=== PATIENT | female | born 1980 | race Hispanic/Latino ===

== ENCOUNTER 2018-07-30 10:46 | Outpatient (CLI) | payer BC | END 2018-07-30 10:47 | disposition home or self-care (01) | LOC: BICMAMMO 10:46 | PROVIDERS: ATTEND Physician Assistant | DX: Z12.31 Encounter for screening mammogram for malignant neoplasm of breast (principal) | CPT/HCPCS: 77063; 77067 ==

== ENCOUNTER 2019-08-01 10:45 | Outpatient (CLI) | payer BC ==
--- NOTE | 2019-08-01 12:05 | MMO ---
Bilateral MAMMO Bilat Screen DDI+NANCY. CLINICAL HISTORY: Patient is 39 years old and is seen for screening. The patient has no family history of breast cancer. The patient has no personal history of cancer. VIEWS: The views performed were: bilateral craniocaudal with tomosynthesis; bilateral mediolateral oblique with tomosynthesis; and bilateral exaggerated craniocaudal. FILMS COMPARED: The present examination has been compared to a prior imaging study performed at [facility] on 07/30/2018. This study has been interpreted with the assistance of computer-aided detection. MAMMOGRAM FINDINGS: The breasts are heterogeneously dense, which could obscure a lesion on mammography. There are no suspicious masses, suspicious calcifications, or new areas of architectural distortion. IMPRESSION: THERE IS NO MAMMOGRAPHIC EVIDENCE OF MALIGNANCY. A ROUTINE FOLLOW-UP MAMMOGRAM IN 1 YEAR IS RECOMMENDED. THE RESULTS OF THIS EXAM WERE SENT TO THE PATIENT. ACR BI-RADS Category 1 - Negative MAMMOGRAPHY NOTE: 1. A negative mammogram report should not delay a biopsy if a dominant of clinically suspicious mass is present. 2. Approximately 10% to 15% of breast cancers are not detected by mammography. 3. Adenosis and dense breasts may obscure an underlying neoplasm. Reported by: RENATE FERNANDES MD Electonically Signed: [id number]
== END 2019-08-01 10:46 | disposition home or self-care (01) ==
LOC: BICMAMMO 10:45
PROVIDERS: ATTEND Physician Assistant
DX: Z12.31 Encounter for screening mammogram for malignant neoplasm of breast (principal)
CPT/HCPCS: 77063; 77067

== ENCOUNTER 2020-06-03 08:14 | Inpatient (IN) | payer BC, OTHER ==
[2020-06-03 09:11] LABS: #Lymphocytes 0.8 thou/uL (1.20-3.40); #Monocytes 0.2 thou/uL (0.11-0.59); #Neutrophils 5.8 thou/uL (1.40-6.50); %Basophils 0.3 % (0.0-1.0); %Eosinophils 0.1 % (0.0-10.0); %Neutrophils 84.6 % (42.0-75.0); Hemoglobin 13.8 g/dL (12.0-16.0); Mean Corpuscular HGB CONC 34.1 g/dL (32.0-36.0); Mean Corpuscular Hemoglobin 31.5 pg (27.0-31.0); Mean Corpuscular Volume 92.6 fL (78.0-98.0); Mean Platelet Volume 7.5 fL (7.4-10.4); Platelet Count 276 thou/uL (130-400); RBC Distribution Width 11.3 % (11.5-14.5); Red Blood Cell (RBC) Count 4.37 mill/uL (4.20-5.40); White Blood Cell (WBC) Count 6.8 thou/uL (4.8-10.8)
[2020-06-03 09:31] LABS: ALT (SGPT) 48 U/L (8-55); AST (SGOT) 43 U/L (5-34); Albumin 4.1 g/dL (3.5-5.0); Alkaline Phosphatase 98 U/L (40-110); Anion Gap 16 mmol/L (10-20); BUN (Urea Nitrogen) 10 mg/dL (7.0-18.7); Bilirubin, Total 0.5 mg/dL (0.2-1.2); Calc. Creatinine Clearance 0 mL/min (70-130); Calcium 8.8 mg/dL (7.8-10.44); Carbon Dioxide 24 mmol/L (22-29); Chloride 102 mmol/L (98-107); Estimated GFR-MDRD 71; Glucose 119 mg/dL (70-105); Potassium 3.5 mmol/L (3.5-5.1); Protein, Total 8.1 g/dL (6.0-8.3); Sodium 138 mmol/L (136-145)
--- NOTE | 2020-06-03 09:54 | RAD ---
CHEST 1 VIEW: Date: 06/03/2020 INDICATION: History of cough, hypoxia, and COVID-positive testing. Difficulty breathing. COMPARISON: Prior exam dated 04/26/2011. FINDINGS: There is bilateral air space disease consistent with multifocal pneumonia. Heart size is normal. No p leural effusion or pneumothorax is evident. No acute osseous abnormality is evident. IMPRESSION: Findings of multifocal pneumonia. POS: BH
[2020-06-03] MEDS ORDERED: Albuterol 200 PUFF (6.7GM INHALER) ONE (10:10)
[2020-06-03] MEDS ORDERED: Dexamethasone 10 MG/ML VIAL ONE (10:11)
[2020-06-03] MEDS ORDERED: cefTRIAXone\\ROCEPHIN 2 GM VIAL ONE (10:11)
[2020-06-03] MEDS ORDERED: Azithromycin 500 MG VIAL ONE (10:11)
--- NOTE | 2020-06-03 10:55 | PDOC.HHP ---
Hospitalist HPI - History of Present Illness Shortness of breath History of Present Illness: PCP: Marianna The patient is a 40-year-old female with no significant past medical history that presents the emergency department for evaluation of the above complaint. Patient reports having a positive diagnosis for the coronavirus approximately 1 week ago. She has multiple family members that have also tested positive. She reports this morning, having more difficulty breathing and feeling short of breath. She reports associated nonproductive cough, loss of smell and fever. She has no history of COPD/asthma. Denies any headache or neck stiffness, no focal motor deficits. Denies chest pain or lightheadedness. No history of DVT/PE. She denies any abdominal pain, nausea, vomiting, diarrhea. Denies any dysuria. ED Course: VITAL SIGNS MonJun 03, 2020 08:25 CHINYERE Dick Lacee BP: 111/69, MAP: 81, Resp: 36, Temp: 100.4 (Oral), Pain: 0, O2 sat: 97 on (Room Air), Time: 06/03/2020 08:25. VITAL SIGNS MonJun 03, 2020 08:40 CHINYERE Cueva Taylor BP: 110/66, Pulse: 106, Resp: 36, Pain: 2, O2 sat: 99 on (2L Oxygen), Time: 06/03/2020 08:40. VITAL SIGNS MonJun 03, 2020 09:50 CHINYERE Cueva Taylor BP: 112/64, MAP: 78, Pulse: 82, Resp: 16, Pain: 0, O2 sat: 96 on (2L Oxygen), Time: 06/03/2020 09:50. VITAL SIGNS MonJun 03, 2020 10:35 CHINYERE Cueva Taylor BP: 110/61, MAP: 78, Pulse: 80, Resp: 18, Pain: 0, O2 sat: 95 on (2L Oxygen), Time: 06/03/2020 10:35. Medication administration: azithromycin intravenous 500 mg IV Piggy Back Acknowledged 09:45 06/03/2020 cefTRIAXone injection 2 g IV Piggy Back Given 10:34 06/03/2020 Decadron Phosphate injection 10 mg IV Push Given 10:29 06/03/2020 Proventil HFA 4 inhalation Inhaler-MDI Given 10:24 06/03/2020 sodium chloride 0.9 % intravenous 500 mL IV Fluid Infusion Given 08:55 06/03/2020 Hospitalist ROS - Review of Systems All other systems reviewed; all pertinent +/- noted in HPI/Subj - Medication Medications: NyQuil liquid : Strength - 30 mg-60 mg-1,000 mg-7.5 mg/30 mL : ORAL Patient Dose: UNK. Vicks DayQuil 2 mg-30 mg/5 mL oral liquid liquid : Strength - 2 mg-30 mg/5 mL : ORAL Patient Dose: UNK. Allergies: NKDA Hospitalist History - Past Medical History Source: patient, RN notes reviewed Cardiac: reports: no pertinent history Pulmonary: reports: no pertinent history INCIDENT RESPONSE LEAD: reports: no pertinent history ENT: reports: no pertinent history - Past Surgical History Past Surgical History: reports: Hysterectomy - Family History Other Family History: Noncontributory to this case - Social History Smoking Status: Never smoker Alcohol: reports: None Drugs: reports: none Living Situation: With Family Activity level: independent ambulation - Exam General Appearance: NAD, awake alert. negative: ill appearing General - other findings: Appears uncomfortable Eye: PERRL, anicteric sclera ENT: normocephalic atraumatic Neck: supple, symmetric, no JVD Heart: RRR, no murmur, no gallops, no rubs, normal peripheral pulses Respiratory: normal chest expansion, no tachypnea, rhonchi, wheezes Gastrointestinal: soft, non-tender, normal bowel sounds, no bruit, no guarding, no rigidity Extremities: no cyanosis, no edema Skin: no rashes Neurological: cranial nerve grossly intact, no focal deficits Musculoskeletal: normal tone, normal strength Psychiatric: normal affect, A&O x 3 Hospitalist Results - Labs Result Diagrams: 06/03/20 08:47 06/03/20 08:47 Lab results: WBC 6.8 thou/uL (4.8-10.8) 06/03/20 08:47 Hgb 13.8 g/dL (12.0-16.0) 06/03/20 08:47 Hct 40.5 % (36.0-47.0) 06/03/20 08:47 MCV 92.6 fL (78.0-98.0) 06/03/20 08:47 Plt Count 276 thou/uL (130-400) 06/03/20 08:47 Neutrophils % 84.6 % (42.0-75.0) H 10/07/20 08:47 Sodium 138 mmol/L (136-145) 06/03/20 08:47 Potassium 3.5 mmol/L (3.5-5.1) 06/03/20 08:47 Chloride 102 mmol/L (98-107) 06/03/20 08:47 Carbon Dioxide 24 mmol/L (22-29) 06/03/20 08:47 BUN 10 mg/dL (7.0-18.7) 06/03/20 08:47 Creatinine 0.87 mg/dL (0.6-1.1) 06/03/20 08:47 Glucose 119 mg/dL (70-105) H 06/03/20 08:47 Lactic Acid 1.5 mmol/L (0.5-2.2) 06/03/20 08:56 Calcium 8.8 mg/dL (7.8-10.44) 06/03/20 08:47 Total Bilirubin 0.5 mg/dL (0.2-1.2) 06/03/20 08:47 AST 43 U/L (5-34) H 06/03/20 08:47 ALT 48 U/L (8-55) 06/03/20 08:47 Alkaline Phosphatase 98 U/L (40-110) 06/03/20 08:47 Troponin I 0.010 ng/mL (< 0.028) 06/03/20 08:47 Serum Total Protein 8.1 g/dL (6.0-8.3) 06/03/20 08:47 Albumin 4.1 g/dL (3.5-5.0) 06/03/20 08:47 - EKG Interpretation EK lead EKG interpreted by Emergency Department Physician at time of study, EKG with heart rate 91, normal sinus rhythm, no acute ischemic changes, normal intervals normal axis - Radiology Interpretation Chest x-ray Status: report reviewed by me Additional Comment: Chest x-ray consistent with bilateral severe COVID pneumonia Hospitalist H&P A/P - Problem (1) COVID-19 virus infection Code(s): U07.1 - COVID-19 Status: Acute (2) Hypoxia Code(s): R09.02 - HYPOXEMIA Status: Acute (3) Sepsis Code(s): A41.9 - SEPSIS, UNSPECIFIED ORGANISM Status: Acute - Plan Plan: 40/F recently diagnosed with COVID, presents to emergency department for increasing shortness of breath. Admit medical floor, inpatient status. Expected length of stay greater than 2 midnights. Presented tachypneic, febrile, hypoxic NL BP and HR. CXR multifocal pneumonia, consistent with viral etiology. Troponin negative, DD negative. LA 1.5, WBC 6.8 #COVID-19 virus infection Continue azithromycin and Rocephin IVPB. Continue dexamethasone, albuterol as needed. Continue submental oxygen. Start ascorbic acid and zinc. Consult ID. Isolation precautions. Check acute phase reactants. #Hypoxia Mild. No acute respiratory distress upon examination. Continue submental oxygen. #Sepsis Likely related to problem #1. Blood cultures pending.
[2020-06-03] MEDS ORDERED: Guaifenesin DM 100-10/5 ML UDCUP PO PRN (11:06)
[2020-06-03] MEDS ORDERED: Calcium Carbonate 500 MG ChewTAB PO PRN (11:06)
[2020-06-03] MEDS ORDERED: Ondansetron PF 4 MG/2 ML Vial IVP PRN (11:06)
[2020-06-03] MEDS ORDERED: Ondansetron ODT 4 MG TAB PO PRN (11:06)
[2020-06-03 12:04] LABS: Bilirubin Negative (Negative); Blood, Urine 1+ (Negative); Clarity Clear (Clear); Glucose, Urine (Dipstick) Normal (Negative); Ketone, Urine Trace mg/dL (Negative); Leukocyte Negative Leu/uL (Negative); Nitrite Negative (Negative); Protein, Urine (Dipstick) 50 mg/dL (Neg-Trace); Specific Gravity, Urine 1.028 (1.002-1.036); Urobilinogen Normal mg/dL (Less than 2)
[2020-06-03 12:09] LABS: Pregnancy Test - Urine (BHCG) Negative (Negative); Pregu Control Background? CLEAR/WHITE (CLR/WHITE); Pregu Control Bar Appear? YES (CONTROL BAR); Specific Gravity 1.028 (1.002-1.036)
[2020-06-03 12:12] LABS: Bacteria/HPF 1+ HPF (None Seen); Mucous/LPF 1+ LPF (<2+)
[2020-06-03 15:22] VITALS: BMI 31.9
[2020-06-03] MEDS: Famotidine 20 MG TAB PO SCH (20:10)
[2020-06-03] MEDS ORDERED: Enoxaparin Sodium 40 MG/0.4 ML SYRINGE SC SCH (21:00)
[2020-06-04 06:42] LABS: #Lymphocytes 0.9 thou/uL (1.20-3.40); #Monocytes 0.4 thou/uL (0.11-0.59); #Neutrophils 8.4 thou/uL (1.40-6.50); %Basophils 0.1 % (0.0-1.0); %Lymphocytes 8.8 % (21.0-51.0); %Monocytes 4.5 % (0.0-10.0); %Neutrophils 86.7 % (42.0-75.0); Hemoglobin 12.6 g/dL (12.0-16.0); Mean Corpuscular HGB CONC 32.6 g/dL (32.0-36.0); Mean Corpuscular Hemoglobin 30.5 pg (27.0-31.0); Mean Corpuscular Volume 93.4 fL (78.0-98.0); Mean Platelet Volume 7.6 fL (7.4-10.4); Platelet Count 310 thou/uL (130-400); RBC Distribution Width 11.2 % (11.5-14.5); Red Blood Cell (RBC) Count 4.15 mill/uL (4.20-5.40); White Blood Cell (WBC) Count 9.6 thou/uL (4.8-10.8)
[2020-06-04 06:53] LABS: Anion Gap 13 mmol/L (10-20); BUN (Urea Nitrogen) 12 mg/dL (7.0-18.7); Calc. Creatinine Clearance 131 mL/min (70-130); Calcium 8.6 mg/dL (7.8-10.44); Carbon Dioxide 24 mmol/L (22-29); Chloride 106 mmol/L (98-107); Estimated GFR-MDRD Greater than 90; Glucose 121 mg/dL (70-105); Sodium 139 mmol/L (136-145)
[2020-06-04] MEDS: Dexamethasone 4 mg/ml Vial SLOW IVP SCH (08:39)
[2020-06-04] MEDS: Famotidine 20 MG TAB PO SCH ×2 (08:39→21:18)
[2020-06-04] MEDS: Ascorbic Acid 500 mg Chewable Tablet PO SCH (08:39)
[2020-06-04] MEDS: Zinc Sulfate 220 MG CAP PO SCH (08:39)
[2020-06-04] MEDS: Acetaminophen 325 MG TAB PO PRN (09:08)
[2020-06-04] MEDS ORDERED: cefTRIAXone\\ROCEPHIN 1 GM in Sodium Chloride 0.9% 100 ML IVPB SCH (10:30)
[2020-06-04] MEDS ORDERED: Azithromycin 500 MG in Sodium Chloride 0.9% 250 ML 250 ML IVPB SCH (11:00)
--- NOTE | 2020-06-04 11:04 | PDOC.HOSPP ---
- Subjective Encounter Date: 06/04/20 Encounter Time: 11:03 Subjective: malaise, loss of smell, dyspne - Objective Vital Signs & Weight: Vital Signs (12 hours) Temp Pulse Resp BP BP Pulse Ox 06/04/20 08:45 98.6 F 76 22 H 110/75 97 06/04/20 08:00 97 06/04/20 04:00 98.3 F 81 18 95/61 94 L 06/03/20 23:36 98.7 F 66 20 95/62 95 Weight Admit Weight 174 lb 12.8 oz Weight 174 lb 12.8 oz I&O: 06/03/20 06/04/20 06/05/20 06:59 06:59 06:59 Intake Total 240 Balance 240 Result Diagrams: 06/04/20 05:30 06/04/20 05:45 Hospitalist ROS - Medication Medications: Active Medications Generic Name Dose Route Start Last Admin Trade Name Freq PRN Reason Stop Dose Admin Acetaminophen 650 mg 06/03/20 11:06 06/04/20 09:08 Acetaminophen 325 Mg Tab PO 650 mg Q4H PRN Administration Headache/Fever/Mild Pain (1-3) Ascorbic Acid 1,000 mg 06/04/20 09:00 06/04/20 08:39 Ascorbic Acid 500 Mg Chewable Tablet PO 1,000 mg DAILY MITUL Administration Dexamethasone 6 mg 06/04/20 09:00 06/04/20 08:39 Dexamethasone 4 Mg/Ml Vial SLOW IVP 6 mg DAILY MITUL Administration Enoxaparin Sodium 40 mg 06/03/20 21:00 06/03/20 20:10 Enoxaparin Sodium 40 Mg/0.4 Ml Syringe SC 40 mg 2100 MITUL Administration Famotidine 20 mg 06/03/20 21:00 06/04/20 08:39 Famotidine 20 Mg Tab PO 20 mg BID MITUL Administration Azithromycin 500 mg/ Sodium 250 mls @ 250 mls/hr 06/04/20 11:00 06/04/20 09:59 Chloride IVPB 250 mls 1100 MITUL Administration Ceftriaxone Sodium 1 gm/ 100 mls @ 200 mls/hr 06/04/20 10:30 06/04/20 08:41 Sodium Chloride IVPB 100 mls 1030 MITUL Administration Zinc Sulfate 220 mg 06/04/20 09:00 06/04/20 08:39 Zinc Sulfate 220 Mg Cap PO 220 mg DAILY MITUL Administration - Exam General Appearance: awake alert Neck: no JVD Heart: RRR, no murmur Respiratory - other findings: decreased BS, moderate fine rales Gastrointestinal: soft, non-tender, normal bowel sounds Extremities: no edema Hosp A/P (1) Pneumonia due to COVID-19 virus Code(s): U07.1 - COVID-19; J12.89 - OTHER VIRAL PNEUMONIA Status: Acute (2) Acute respiratory failure with hypoxia Code(s): J96.01 - ACUTE RESPIRATORY FAILURE WITH HYPOXIA Status: Acute - Plan cont iv steroids cont albuterol anticoagulate
[2020-06-04] MEDS: PROVENTIL INHALER 6.7 G (200 INHALATIONS) INH PRN (14:22)
[2020-06-04] MEDS ORDERED: REMDESIVIR (EUA) 200 MG in Sodium Chloride 0.9% 250 ML 210 ML IV SCH (16:00)
--- NOTE | 2020-06-04 19:45 | CON ---
DATE OF CONSULTATION: 06/04/2020 REASON FOR CONSULTATION: COVID pneumonia. HISTORY OF PRESENT ILLNESS: A 40-year-old with no past medical history who has had symptoms of fever and respiratory symptoms since Monday last week, so this is the 8th day of illness. She tested positive and then has gotten progressively worse with dyspnea. She was admitted and has been started on Decadron, azithromycin, and O2 supplementation. She is quite scared right now and has a hard time taking deep breaths, coughing intermittently. She is able to eat. No vomiting, no headaches. Her mental state is stable and no abdominal pain. No genitourinary symptoms. No joint symptoms. PAST MEDICAL HISTORY: Negative. SOCIAL HISTORY: , never a smoker. Works at [employer]. Looks like there is still COVID transmission at [employer]. She states that some of her coworkers do not wear masks in the workplace. ALLERGIES: NONE. MEDICATIONS: She is currently on: 1. Albuterol. 2. Azithromycin. 3. Ceftriaxone. 4. Enoxaparin. 5. Decadron. 6. Zinc sulfate. PHYSICAL EXAMINATION: VITAL SIGNS: Afebrile, breathing at 22 times a minute. She is satting at 100 on 2 L. she looks pretty tight, though, has a hard time taking deep breaths. RESPIRATORY: There are fine inspiratory crackles in bibasilar areas. HEART: S1 and S2, regular rate. ABDOMEN: Soft, not distended. NEUROLOGICAL/EXTREMITIES: Nonfocal. No edema. Pulses are normal in lower extremities. Cognitive function appears to be intact. LABORATORY DATA: White cell count 9.6, hemoglobin 12.6, platelets 310, 86% neutrophils. D-dimer 0.3. Ferritin 853. CRP 11.3. Albumin 4.1. Urinalysis, 4 to 6 wbc's. DIAGNOSTIC STUDIES: Chest x-ray with multifocal pneumonia. ASSESSMENT: Otherwise healthy middle-aged female with coronavirus disease pneumonia, moderate to severe, 8 days of illness. We will go ahead and add remdesivir, convalescent plasma. Continue Decadron and enoxaparin daily. Inflammatory marker monitoring. Job ID: [id number] MTDD
[2020-06-04] MEDS ORDERED: Enoxaparin Sodium 80 MG/0.8 ML SYRINGE SC SCH (21:00)
[2020-06-05 05:56] LABS: Hemoglobin 12.8 g/dL (12.0-16.0); Platelet Count 374 thou/uL (130-400)
[2020-06-05] MEDS: Ascorbic Acid 500 mg Chewable Tablet PO SCH (08:58)
[2020-06-05] MEDS: Famotidine 20 MG TAB PO SCH ×2 (08:58→19:59)
[2020-06-05] MEDS: Dexamethasone 4 mg/ml Vial SLOW IVP SCH (08:58)
[2020-06-05] MEDS: Zinc Sulfate 220 MG CAP PO SCH (09:02)
[2020-06-05] MEDS: Enoxaparin Sodium 40 MG/0.4 ML SYRINGE SC SCH ×2 (09:15→19:58)
[2020-06-05 12:10] LABS: SARS-CoV-2 MS2 Positive; SARS-CoV-2 N Gene Positive; SARS-CoV-2 S Gene Positive; SARS-CoV-2 by NAA DETECTED (NotDetected); SARS-CoV-2 orf1ab Positive
[2020-06-05] MEDS: REMDESIVIR (EUA) 100 MG in Sodium Chloride 0.9% 250 ML 230 ML IV SCH (18:03)
--- NOTE | 2020-06-05 18:50 | PDOC.HOSPP ---
- Subjective Encounter Date: 06/05/20 Encounter Time: 18:30 Subjective: Patient seen and examined for COVID-19 pneumonia with respiratory failure. Feels generally weak and fatigued. Some productive cough. Shortness of breath on [id number] exertion. Denies any chest pain or worsening of redness of breath. - Objective Vital Signs & Weight: Vital Signs (12 hours) Temp Pulse Pulse Resp BP BP Pulse Ox 06/05/20 16:15 98.2 F 67 16 96/60 98 06/05/20 13:46 98.3 F 68 16 98/62 98 06/05/20 13:31 98.3 F 69 16 106/70 97 06/05/20 08:00 98.4 F 68 20 103/67 98 Weight Admit Weight 174 lb 12.8 oz Weight 174 lb 12.8 oz I&O: 06/04/20 06/05/20 06/06/20 06:59 06:59 06:59 Intake Total 240 1600 240 Balance 240 1600 240 Result Diagrams: 06/05/20 05:40 06/05/20 05:40 Additional Labs: 06/04/20 05:30: RBC 4.15 L, RDW 11.2 L, Neutrophils % 86.7 H, Lymphocytes % 8.8 L, Neutrophils # 8.4 H, Lymphocytes # 0.9 L 06/04/20 05:45: Lactate Dehydrogenase 334 H 06/04/20 05:45: C-Reactive Protein 11.30 H 06/04/20 05:45: Ferritin 853.84 H 06/04/20 16:44: SARS-CoV-2 (PCR) DETECTED A* Microbiology - Entire Visit 06/03/20 08:47 Venous blood - Left Arm Blood Culture - Preliminary NO GROWTH AT 48 HOURS 06/03/20 08:47 Venous blood - Right Arm Blood Culture - Preliminary NO GROWTH AT 48 HOURS Radiology Reviewed by me: Yes (Chest x-raymultifocal pneumonia) Hospitalist ROS - Review of Systems Constitutional: reports: weakness, malaise. denies: fever, chills, sweats, other Gastrointestinal: denies: nausea, vomiting, abdominal pain, diarrhea, constipation, melena, hematochezia, other - Medication Medications: Active Medications Generic Name Dose Route Start Last Admin Trade Name Freq PRN Reason Stop Dose Admin Acetaminophen 650 mg 06/03/20 11:06 06/04/20 09:08 Acetaminophen 325 Mg Tab PO 650 mg Q4H PRN Administration Headache/Fever/Mild Pain (1-3) Albuterol Sulfate 2 puff 06/03/20 14:41 06/04/20 14:22 Proventil Inhaler 6.7 G (200 Inhalations) INH 2 puff Q4H PRN Administration bronchospasm Ascorbic Acid 1,000 mg 06/04/20 09:00 06/05/20 08:58 Ascorbic Acid 500 Mg Chewable Tablet PO 1,000 mg DAILY MITUL Administration Dexamethasone 6 mg 06/04/20 09:00 06/05/20 08:58 Dexamethasone 4 Mg/Ml Vial SLOW IVP 6 mg DAILY MITUL Administration Enoxaparin Sodium 40 mg 06/05/20 09:00 06/05/20 09:15 Enoxaparin Sodium 40 Mg/0.4 Ml Syringe SC 40 mg 0900,2100 MITUL Administration Famotidine 20 mg 06/03/20 21:00 06/05/20 08:58 Famotidine 20 Mg Tab PO 20 mg BID MITUL Administration Remdesivir 100 mg/ Sodium 250 mls @ 250 mls/hr 06/05/20 16:00 06/05/20 18:03 Chloride IV 06/08/20 16:59 250 mls 1600 MITUL Administration Zinc Sulfate 220 mg 06/04/20 09:00 06/05/20 09:02 Zinc Sulfate 220 Mg Cap PO 220 mg DAILY MITUL Administration - Exam General Appearance: ill appearing Neck: supple, symmetric, no JVD Heart: RRR, no gallops, no rubs, normal peripheral pulses Respiratory: no wheezes, rales, rhonchi, tachypneic (Mild) Gastrointestinal: soft, non-tender, normal bowel sounds, no guarding, no rigidity Extremities: no cyanosis, no clubbing Neurological: no new deficit Musculoskeletal: generalized weakness Psychiatric: normal affect, A&O x 3 Hosp A/P (1) Acute respiratory failure with hypoxia Code(s): J96.01 - ACUTE RESPIRATORY FAILURE WITH HYPOXIA Status: Acute (2) Pneumonia due to COVID-19 virus Code(s): U07.1 - COVID-19; J12.89 - OTHER VIRAL PNEUMONIA Status: Acute (3) Sepsis Code(s): A41.9 - SEPSIS, UNSPECIFIED ORGANISM Status: Acute (4) Obesity (BMI 30.0-34.9) Code(s): E66.9 - OBESITY, UNSPECIFIED Status: Chronic - Plan DVT proph w/lovenox 06/05 Continue Remdesivir (day 2 of 5). Received convalescent plasma today. Continue dexamethasone 6 mg daily (day 2). Reduce Lovenox to 40 mg twice daily from 80 mg twice daily. Continue vitamin C with zinc. GI prophylaxis. Monitor inflammatory markers. Patient understands above plan of care. Infectious disease input appreciated. Continue albuterol inhaler as needed.
[2020-06-05] MEDS: guaiFENesin ER 600 MG TAB PO SCH (19:59)
[2020-06-05] MEDS: Acetaminophen 325 MG TAB PO PRN (19:59)
[2020-06-05] MEDS: PROVENTIL INHALER 6.7 G (200 INHALATIONS) INH PRN (20:00)
[2020-06-06 06:11] LABS: #Lymphocytes 1.2 thou/uL (1.20-3.40); #Monocytes 0.6 thou/uL (0.11-0.59); #Neutrophils 4.7 thou/uL (1.40-6.50); %Basophils 0.1 % (0.0-1.0); %Eosinophils 0.1 % (0.0-10.0); %Lymphocytes 18.6 % (21.0-51.0); %Monocytes 9.1 % (0.0-10.0); %Neutrophils 72.1 % (42.0-75.0); Hemoglobin 12.6 g/dL (12.0-16.0); Mean Corpuscular HGB CONC 34.2 g/dL (32.0-36.0); Mean Corpuscular Hemoglobin 31.7 pg (27.0-31.0); Mean Corpuscular Volume 92.8 fL (78.0-98.0); Mean Platelet Volume 7.4 fL (7.4-10.4); Platelet Count 413 thou/uL (130-400); RBC Distribution Width 11.5 % (11.5-14.5); Red Blood Cell (RBC) Count 3.96 mill/uL (4.20-5.40); White Blood Cell (WBC) Count 6.5 thou/uL (4.8-10.8)
[2020-06-06 06:38] LABS: ALT (SGPT) 56 U/L (8-55); AST (SGOT) 30 U/L (5-34); Albumin 3.4 g/dL (3.5-5.0); Alkaline Phosphatase 76 U/L (40-110); Anion Gap 13 mmol/L (10-20); BUN (Urea Nitrogen) 15 mg/dL (7.0-18.7); Bilirubin, Total 0.3 mg/dL (0.2-1.2); CRP (Inflammatory) 3.51 mg/dL (= or < 0.5); Calc. Creatinine Clearance 127 mL/min (70-130); Calcium 8.5 mg/dL (7.8-10.44); Carbon Dioxide 24 mmol/L (22-29); Chloride 108 mmol/L (98-107); Estimated GFR-MDRD 89; Globulin 3.3 g/dL (2.4-3.5); Glucose 102 mg/dL (70-105); Magnesium 2.4 mg/dL (1.6-2.6); Protein, Total 6.7 g/dL (6.0-8.3); Sodium 141 mmol/L (136-145)
[2020-06-06] MEDS: guaiFENesin ER 600 MG TAB PO SCH ×2 (08:45→20:55)
[2020-06-06] MEDS: Dexamethasone 4 mg/ml Vial SLOW IVP SCH (08:45)
[2020-06-06] MEDS: Multivit, Therapeutic 1 TAB PO SCH (08:45)
[2020-06-06] MEDS: Ascorbic Acid 500 mg Chewable Tablet PO SCH (08:45)
[2020-06-06] MEDS: Famotidine 20 MG TAB PO SCH ×2 (08:45→20:55)
[2020-06-06] MEDS: Zinc Sulfate 220 MG CAP PO SCH (08:45)
[2020-06-06] MEDS: Enoxaparin Sodium 40 MG/0.4 ML SYRINGE SC SCH ×2 (08:46→20:55)
--- NOTE | 2020-06-06 15:27 | PRG ---
DATE OF SERVICE: 06/06/2020 SUBJECTIVE: The patient is feeling a little better. Does not have any diarrhea. No dyspnea. Less cough. OBJECTIVE: VITAL SIGNS: She is afebrile, O2 saturations ranged from 95% to 100% on 2 L nasal cannula. LUNGS: Symmetric, clear breath sounds. HEART: S1, S2, regular rate. ABDOMEN: Soft, not distended or tender. LABORATORY DATA: Sodium 141, creatinine 0.72. Ferritin is down to 665, and C-reactive protein with marked decreased from 11 to 3.51. ASSESSMENT AND DISCUSSION: Coronavirus pneumonia without any obvious adverse risk factors but still with moderate to severe disease. This is the 10th day of illness. She is finishing up remdesivir and still on Decadron, enoxaparin. Should do well in the next few days and hopefully be going home in 48 to 72 hours. Job ID: [id number]
[2020-06-06] MEDS: REMDESIVIR (EUA) 100 MG in Sodium Chloride 0.9% 250 ML 230 ML IV SCH (16:27)
--- NOTE | 2020-06-06 18:34 | PDOC.HOSPP ---
- Subjective Encounter Date: 06/06/20 Encounter Time: 18:15 Subjective: Patient evaluated for COVID-19 pneumonia with respiratory failure. Feels generally weak and fatigued. Denies any other complaints. Shortness of breath slightly improved. - Objective Vital Signs & Weight: Vital Signs (12 hours) Temp Pulse Resp BP Pulse Ox 06/06/20 16:23 98.2 F 81 20 127/77 92 L 06/06/20 08:45 98.0 F 57 L 20 115/65 95 Weight Admit Weight 174 lb 12.8 oz Weight 174 lb 12.8 oz I&O: 06/05/20 06/06/20 06/07/20 06:59 06:59 06:59 Intake Total 1600 490 Balance 1600 490 Result Diagrams: 06/06/20 05:27 06/06/20 05:27 Additional Labs: 06/04/20 16:44: SARS-CoV-2 (PCR) DETECTED A* 06/06/20 05:27: Chloride 108 H, ALT 56 H, C-Reactive Protein 3.51 H, Albumin 3.4 L, Albumin/Globulin Ratio 1.0 L 06/06/20 05:27: Ferritin 665.62 H 06/06/20 05:27: RBC 3.96 L, MCH 31.7 H, Plt Count 413 H, Lymphocytes % 18.6 L, Monocytes # 0.6 H Microbiology - Entire Visit 06/03/20 08:47 Venous blood - Left Arm Blood Culture - Preliminary NO GROWTH AT 48 HOURS 06/03/20 08:47 Venous blood - Right Arm Blood Culture - Preliminary NO GROWTH AT 48 HOURS Hospitalist ROS - Review of Systems Cardiovascular: denies: chest pain, palpitations, orthopnea, paroxysmal noc. dyspnea, edema, light headedness, other Gastrointestinal: denies: nausea, vomiting, abdominal pain, diarrhea, constipation, melena, hematochezia, other - Medication Medications: Active Medications Generic Name Dose Route Start Last Admin Trade Name Freq PRN Reason Stop Dose Admin Acetaminophen 650 mg 06/03/20 11:06 06/05/20 19:59 Acetaminophen 325 Mg Tab PO 650 mg Q4H PRN Administration Headache/Fever/Mild Pain (1-3) Albuterol Sulfate 2 puff 06/03/20 14:41 06/05/20 20:00 Proventil Inhaler 6.7 G (200 Inhalations) INH 2 puff Q4H PRN Administration bronchospasm Ascorbic Acid 1,000 mg 06/04/20 09:00 06/06/20 08:45 Ascorbic Acid 500 Mg Chewable Tablet PO 1,000 mg DAILY MITUL Administration Dexamethasone 6 mg 06/04/20 09:00 06/06/20 08:45 Dexamethasone 4 Mg/Ml Vial SLOW IVP 6 mg DAILY MITUL Administration Enoxaparin Sodium 40 mg 06/05/20 09:00 06/06/20 08:46 Enoxaparin Sodium 40 Mg/0.4 Ml Syringe SC 40 mg 09,2099 MITUL Administration Famotidine 20 mg 06/03/20 21:00 06/06/20 08:45 Famotidine 20 Mg Tab PO 20 mg BID MITUL Administration Guaifenesin 600 mg 06/05/20 21:00 06/06/20 08:45 Guaifenesin Er 600 Mg Tab PO 600 mg Q12HR MITUL Administration Remdesivir 100 mg/ Sodium 250 mls @ 250 mls/hr 06/05/20 16:00 06/06/20 16:27 Chloride IV 06/08/20 16:59 250 mls 1600 MITUL Administration Multivitamins 1 tab 06/06/20 09:00 06/06/20 08:45 Multivit, Therapeutic 1 Tab PO 1 tab DAILY MITUL Administration Sodium Chloride 10 ml 06/03/20 11:06 06/06/20 16:27 Flush - Normal Saline 10 Ml Syringe IVF 10 ml PRN PRN Administration Saline Flush Zinc Sulfate 220 mg 06/04/20 09:00 06/06/20 08:45 Zinc Sulfate 220 Mg Cap PO 220 mg DAILY MITUL Administration - Exam General Appearance: ill appearing Neck: supple Extremities: no edema Musculoskeletal: generalized weakness Psychiatric: normal affect, A&O x 3 Hosp A/P (1) Acute respiratory failure with hypoxia Code(s): J96.01 - ACUTE RESPIRATORY FAILURE WITH HYPOXIA Status: Acute (2) Pneumonia due to COVID-19 virus Code(s): U07.1 - COVID-19; J12.89 - OTHER VIRAL PNEUMONIA Status: Acute (3) Sepsis Code(s): A41.9 - SEPSIS, UNSPECIFIED ORGANISM Status: Acute (4) Obesity (BMI 30.0-34.9) Code(s): E66.9 - OBESITY, UNSPECIFIED Status: Chronic - Plan 06/06 Continue Remdesivirday 3. Continue Decadron 3. Continue Lovenox 40 mg twice daily for DVT prophylaxis. s/p convalescent plasma. Monitor inflammatory markers. Continue other medications as above. 06/05 Continue Remdesivir (day 2 of 5). Received convalescent plasma today. Continue dexamethasone 6 mg daily (day 2). Reduce Lovenox to 40 mg twice daily from 80 mg twice daily. Continue vitamin C with zinc. GI prophylaxis. Monitor inflammatory markers. Patient understands above plan of care. Infectious di sease input appreciated. Continue albuterol inhaler as needed.
[2020-06-07 06:07] LABS: #Monocytes 0.6 thou/uL (0.11-0.59); %Eosinophils 0.2 % (0.0-10.0); %Lymphocytes 26.1 % (21.0-51.0); %Neutrophils 65.7 % (42.0-75.0); Hemoglobin 12.6 g/dL (12.0-16.0); Mean Corpuscular HGB CONC 33.7 g/dL (32.0-36.0); Mean Corpuscular Hemoglobin 31.1 pg (27.0-31.0); Mean Platelet Volume 7.3 fL (7.4-10.4); Platelet Count 473 thou/uL (130-400); RBC Distribution Width 11.4 % (11.5-14.5); Red Blood Cell (RBC) Count 4.06 mill/uL (4.20-5.40); White Blood Cell (WBC) Count 7.5 thou/uL (4.8-10.8)
[2020-06-07 06:30] LABS: ALT (SGPT) 54 U/L (8-55); AST (SGOT) 27 U/L (5-34); Albumin 3.3 g/dL (3.5-5.0); Alkaline Phosphatase 73 U/L (40-110); Anion Gap 12 mmol/L (10-20); BUN (Urea Nitrogen) 15 mg/dL (7.0-18.7); Bilirubin, Total 0.3 mg/dL (0.2-1.2); Calc. Creatinine Clearance 124 mL/min (70-130); Calcium 8.4 mg/dL (7.8-10.44); Carbon Dioxide 25 mmol/L (22-29); Chloride 107 mmol/L (98-107); Estimated GFR-MDRD 86; Globulin 3.1 g/dL (2.4-3.5); Glucose 106 mg/dL (70-105); Potassium 3.9 mmol/L (3.5-5.1); Protein, Total 6.4 g/dL (6.0-8.3); Sodium 140 mmol/L (136-145)
[2020-06-07] MEDS: guaiFENesin ER 600 MG TAB PO SCH ×2 (08:48→19:19)
[2020-06-07] MEDS: Ascorbic Acid 500 mg Chewable Tablet PO SCH (08:49)
[2020-06-07] MEDS: Multivit, Therapeutic 1 TAB PO SCH (08:50)
[2020-06-07] MEDS: Zinc Sulfate 220 MG CAP PO SCH (08:50)
[2020-06-07] MEDS: Dexamethasone 4 mg/ml Vial SLOW IVP SCH (08:51)
[2020-06-07] MEDS: Enoxaparin Sodium 40 MG/0.4 ML SYRINGE SC SCH ×2 (08:51→19:19)
[2020-06-07] MEDS: Famotidine 20 MG TAB PO SCH ×2 (08:51→19:19)
[2020-06-07] MEDS: REMDESIVIR (EUA) 100 MG in Sodium Chloride 0.9% 250 ML 230 ML IV SCH (16:37)
[2020-06-07] MEDS: ALPRAZolam 0.25 MG TAB PO PRN (16:38)
--- NOTE | 2020-06-07 17:47 | PDOC.HOSPP ---
- Subjective Encounter Date: 06/07/20 Encounter Time: 15:30 Subjective: Patient seen and examined for respiratory failure/COVID-19 pneumonia. Shortness of breath on minimal exertion. Mild dry cough. - Objective Vital Signs & Weight: Vital Signs (12 hours) Temp Pulse Resp BP Pulse Ox 06/07/20 16:00 98.0 F 64 18 111/71 96 06/07/20 12:00 98.1 F 76 16 93/59 L 95 06/07/20 08:00 98.0 F 58 L 18 108/73 94 L Weight Admit Weight 174 lb 12.8 oz Weight 174 lb 12.8 oz I&O: 06/06/20 06/07/20 06/08/20 06:59 06:59 06:59 Intake Total 490 Balance 490 Result Diagrams: 06/07/20 05:34 06/07/20 05:34 Hospitalist ROS - Review of Systems Cardiovascular: denies: chest pain, palpitations, orthopnea, paroxysmal noc. dyspnea, edema, light headedness, other Gastrointestinal: denies: nausea, vomiting, abdominal pain, diarrhea, constipation, melena, hematochezia, other - Medication Medications: Active Medications Generic Name Dose Route Start Last Admin Trade Name Freq PRN Reason Stop Dose Admin Acetaminophen 650 mg 06/03/20 11:06 06/05/20 19:59 Acetaminophen 325 Mg Tab PO 650 mg Q4H PRN Administration Headache/Fever/Mild Pain (1-3) Albuterol Sulfate 2 puff 06/03/20 14:41 06/05/20 20:00 Proventil Inhaler 6.7 G (200 Inhalations) INH 2 puff Q4H PRN Administration bronchospasm Alprazolam 0.25 mg 06/07/20 15:21 06/07/20 16:38 Alprazolam 0.25 Mg Tab PO 0.25 mg BIDPRN PRN Administration Anxiety Ascorbic Acid 1,000 mg 06/04/20 09:00 06/07/20 08:49 Ascorbic Acid 500 Mg Chewable Tablet PO 1,000 mg DAILY MITUL Administration Dexamethasone 6 mg 06/04/20 09:00 06/07/20 08:51 Dexamethasone 4 Mg/Ml Vial SLOW IVP 6 mg DAILY MITUL Administration Enoxaparin Sodium 40 mg 06/05/20 09:00 06/07/20 08:51 Enoxaparin Sodium 40 Mg/0.4 Ml Syringe SC 40 mg 0900,2100 MITUL Administration Famotidine 20 mg 06/03/20 21:00 06/07/20 08:51 Famotidine 20 Mg Tab PO 20 mg BID MITUL Administration Guaifenesin 600 mg 06/05/20 21:00 06/07/20 08:48 Guaifenesin Er 600 Mg Tab PO 600 mg Q12HR MITUL Administration Remdesivir 100 mg/ Sodium 250 mls @ 250 mls/hr 06/05/20 16:00 06/07/20 16:37 Chloride IV 06/08/20 16:59 250 mls 1600 MITUL Administration Multivitamins 1 tab 06/06/20 09:00 06/07/20 08:50 Multivit, Therapeutic 1 Tab PO 1 tab DAILY MITUL Administration Sodium Chloride 10 ml 06/03/20 11:06 06/06/20 16:27 Flush - Normal Saline 10 Ml Syringe IVF 10 ml PRN PRN Administration Saline Flush Zinc Sulfate 220 mg 06/04/20 09:00 06/07/20 08:50 Zinc Sulfate 220 Mg Cap PO 220 mg DAILY MITUL Administration - Exam General Appearance: NAD Heart: RRR, no gallops, no rubs Respiratory: rales, rhonchi Gastrointestinal: soft, normal bowel sounds Extremities: no cyanosis Musculoskeletal: generalized weakness Hosp A/P (1) Acute respiratory failure with hypoxia Code(s): J96.01 - ACUTE RESPIRATORY FAILURE WITH HYPOXIA Status: Acute (2) Pneumonia due to COVID-19 virus Code(s): U07.1 - COVID-19; J12.89 - OTHER VIRAL PNEUMONIA Status: Acute (3) Sepsis Code(s): A41.9 - SEPSIS, UNSPECIFIED ORGANISM Status: Acute (4) Obesity (BMI 30.0-34.9) Code(s): E66.9 - OBESITY, UNSPECIFIED Status: Chronic - Plan 06/07 Continue desivir 4 with dexamethasone. Received convalescent plasma this admission. Continue Mucinex. Continue Lovenox 40 mg twice daily for DVT prophylaxis. Continue supportive care and inhalers. DC home probably in 2 to 3 days once cleared by infectious disease. 06/06 Continue Remdesivir 3. Continue Decadron 3. Continue Lovenox 40 mg twice daily for DVT prophylaxis. s/p convalescent plasma. Monitor inflammatory markers. Continue other medications as above. 06/05 Continue Remdesivir (day 2 of 5). Received convalescent plasma today. Continue dexamethasone 6 mg daily (day 2). Reduce Lovenox to 40 mg twice daily from 80 mg twice daily. Continue vitamin C with zinc. GI prophylaxis. Monitor inflammatory markers. Patient understands above plan of care. Infectious disease input appreciated. Continue albuterol inhaler as needed.
[2020-06-08] MEDS: Acetaminophen 325 MG TAB PO PRN ×2 (05:23→21:19)
[2020-06-08 06:09] LABS: #Lymphocytes 2.1 thou/uL (1.20-3.40); #Monocytes 0.5 thou/uL (0.11-0.59); #Neutrophils 4.4 thou/uL (1.40-6.50); %Basophils 0.5 % (0.0-1.0); %Eosinophils 0.2 % (0.0-10.0); %Lymphocytes 29.9 % (21.0-51.0); %Monocytes 7.1 % (0.0-10.0); %Neutrophils 62.3 % (42.0-75.0); Hemoglobin 13.3 g/dL (12.0-16.0); Mean Corpuscular HGB CONC 33.4 g/dL (32.0-36.0); Mean Corpuscular Hemoglobin 31.3 pg (27.0-31.0); Mean Corpuscular Volume 93.6 fL (78.0-98.0); Platelet Count 514 thou/uL (130-400); RBC Distribution Width 11.5 % (11.5-14.5); Red Blood Cell (RBC) Count 4.26 mill/uL (4.20-5.40); White Blood Cell (WBC) Count 7.1 thou/uL (4.8-10.8)
[2020-06-08 06:34] LABS: ALT (SGPT) 70 U/L (8-55); AST (SGOT) 37 U/L (5-34); Albumin 3.4 g/dL (3.5-5.0); Alkaline Phosphatase 76 U/L (40-110); Anion Gap 13 mmol/L (10-20); BUN (Urea Nitrogen) 13 mg/dL (7.0-18.7); Bilirubin, Total 0.3 mg/dL (0.2-1.2); CRP (Inflammatory) 1.08 mg/dL (= or < 0.5); Calc. Creatinine Clearance 118 mL/min (70-130); Calcium 8.7 mg/dL (7.8-10.44); Carbon Dioxide 26 mmol/L (22-29); Chloride 106 mmol/L (98-107); Estimated GFR-MDRD 81; Globulin 3.4 g/dL (2.4-3.5); Glucose 94 mg/dL (70-105); Potassium 3.7 mmol/L (3.5-5.1); Protein, Total 6.8 g/dL (6.0-8.3); Sodium 141 mmol/L (136-145)
[2020-06-08] MEDS: Ascorbic Acid 500 mg Chewable Tablet PO SCH (09:50)
[2020-06-08] MEDS: Enoxaparin Sodium 40 MG/0.4 ML SYRINGE SC SCH ×2 (09:51→21:17)
[2020-06-08] MEDS: Zinc Sulfate 220 MG CAP PO SCH (09:51)
[2020-06-08] MEDS: Multivit, Therapeutic 1 TAB PO SCH (09:51)
[2020-06-08] MEDS: Dexamethasone 4 mg/ml Vial SLOW IVP SCH (09:51)
[2020-06-08] MEDS: Famotidine 20 MG TAB PO SCH ×2 (09:51→21:16)
[2020-06-08] MEDS: guaiFENesin ER 600 MG TAB PO SCH ×2 (09:51→21:17)
[2020-06-08] MEDS: REMDESIVIR (EUA) 100 MG in Sodium Chloride 0.9% 250 ML 230 ML IV SCH (17:06)
--- NOTE | 2020-06-08 19:34 | PDOC.HOSPP ---
- Subjective Encounter Date: 06/08/20 Encounter Time: 15:45 Subjective: Patient seen and examined for COVID-19 pneumonia/respiratory failure. Feels generally weak. Shortness of breath on minimal exertion. - Objective Vital Signs & Weight: Vital Signs (12 hours) Temp Pulse Resp BP Pulse Ox 06/08/20 17:15 98.1 F 57 L 16 104/61 96 06/08/20 12:13 98 F 71 18 93/60 96 06/08/20 09:50 97.5 F L 54 L 18 107/65 96 Weight Admit Weight 174 lb 12.8 oz Weight 174 lb 12.8 oz I&O: 06/07/20 06/08/20 06/09/20 06:59 06:59 06:59 Intake Total 990 Output Total 2 Balance 988 Result Diagrams: 06/09/20 05:37 06/09/20 05:37 Hospitalist ROS - Review of Systems Cardiovascular: denies: chest pain, palpitations, orthopnea, paroxysmal noc. dyspnea, edema, light headedness, other Gastrointestinal: denies: nausea, vomiting, abdominal pain, diarrhea, constipa tion, melena, hematochezia, other - Medication Medications: Active Medications Generic Name Dose Route Start Last Admin Trade Name Freq PRN Reason Stop Dose Admin Acetaminophen 650 mg 06/03/20 11:06 06/08/20 05:23 Acetaminophen 325 Mg Tab PO 650 mg Q4H PRN Administration Headache/Fever/Mild Pain (1-3) Albuterol Sulfate 2 puff 06/03/20 14:41 06/05/20 20:00 Proventil Inhaler 6.7 G (200 Inhalations) INH 2 puff Q4H PRN Administration bronchospasm Alprazolam 0.25 mg 06/07/20 15:21 06/07/20 16:38 Alprazolam 0.25 Mg Tab PO 0.25 mg BIDPRN PRN Administration Anxiety Ascorbic Acid 1,000 mg 06/04/20 09:00 06/08/20 09:50 Ascorbic Acid 500 Mg Chewable Tablet PO 1,000 mg DAILY MITUL Administration Dexamethasone 6 mg 06/04/20 09:00 06/08/20 09:51 Dexamethasone 4 Mg/Ml Vial SLOW IVP 6 mg DAILY MITUL Administration Enoxaparin Sodium 40 mg 06/05/20 09:00 06/08/20 09:51 Enoxaparin Sodium 40 Mg/0.4 Ml Syringe SC 40 mg 0900,2100 MITUL Administration Famotidine 20 mg 06/03/20 21:00 06/08/20 09:51 Famotidine 20 Mg Tab PO 20 mg BID MITUL Administration Guaifenesin 600 mg 06/05/20 21:00 06/08/20 09:51 Guaifenesin Er 600 Mg Tab PO 600 mg Q12HR MITUL Administration Multivitamins 1 tab 06/06/20 09:00 06/08/20 09:51 Multivit, Therapeutic 1 Tab PO 1 tab DAILY MITUL Administration Sodium Chloride 10 ml 06/03/20 11:06 06/06/20 16:27 Flush - Normal Saline 10 Ml Syringe IVF 10 ml PRN PRN Administration Saline Flush Zinc Sulfate 220 mg 06/04/20 09:00 06/08/20 09:51 Zinc Sulfate 220 Mg Cap PO 220 mg DAILY MITUL Administration - Exam General Appearance: ill appearing General - other findings: Mild respiratory distress at rest Heart: RRR, no gallops Respiratory: rales, rhonchi Gastrointestinal: soft, non-tender, normal bowel sounds Extremities: no cyanosis Neurological: no new deficit Hosp A/P (1) Acute respiratory failure with hypoxia Code(s): J96.01 - ACUTE RESPIRATORY FAILURE WITH HYPOXIA Status: Acute (2) Pneumonia due to COVID-19 virus Code(s): U07.1 - COVID-19; J12.89 - OTHER VIRAL PNEUMONIA Status: Acute (3) Sepsis Code(s): A41.9 - SEPSIS, UNSPECIFIED ORGANISM Status: Acute (4) Obesity (BMI 30.0-34.9) Code(s): E66.9 - OBESITY, UNSPECIFIED Status: Chronic - Plan 06/08 Patient requiring 2 L nasal cannula. Will complete Remdesivir. Continue dexamethasone. Continue Lovenox for DVT prophylaxis. Will arrange for home oxygen. Probable discharge in 24 to 48 hours if okay with infectious disease. The patient is at high risk of decompensation. Advised patient to buy pulse oximetry. 06/07 Continue Remdesivirday 4 with dexamethasone. Received convalescent plasma this admission. Continue Mucinex. Continue Lovenox 40 mg twice daily for DVT prophylaxis. Continue supportive care and inhalers. DC home probably in 2 to 3 days once cleared by infectious disease. 06/06 Continue Remdesivir 3. Continue Decadron 3. Continue Lovenox 40 mg twi ce daily for DVT prophylaxis. s/p convalescent plasma. Monitor inflammatory markers. Continue other medications as above. 06/05 Continue Remdesivir (day 2 of 5). Received convalescent plasma today. Continue dexamethasone 6 mg daily (day 2). Reduce Lovenox to 40 mg twice daily from 80 mg twice daily. Continue vitamin C with zinc. GI prophylaxis. Monitor inflammatory markers. Patient understands above plan of care. Infectious disease input appreciated. Continue albuterol inhaler as needed.
[2020-06-08] MEDS: ALPRAZolam 0.25 MG TAB PO PRN (21:19)
[2020-06-09 06:22] LABS: #Basophils 0.1 thou/uL (0.0-0.2); #Eosinphils 0.1 thou/uL (0.0-0.7); #Lymphocytes 2.2 thou/uL (1.20-3.40); #Monocytes 0.6 thou/uL (0.11-0.59); #Neutrophils 5.1 thou/uL (1.40-6.50); %Basophils 1.6 % (0.0-1.0); %Eosinophils 0.7 % (0.0-10.0); %Lymphocytes 27.1 % (21.0-51.0); %Monocytes 7.3 % (0.0-10.0); %Neutrophils 63.4 % (42.0-75.0); Hemoglobin 13.9 g/dL (12.0-16.0); Mean Corpuscular HGB CONC 32.9 g/dL (32.0-36.0); Mean Corpuscular Hemoglobin 30.5 pg (27.0-31.0); Mean Corpuscular Volume 92.6 fL (78.0-98.0); Mean Platelet Volume 7.1 fL (7.4-10.4); Platelet Count 595 thou/uL (130-400); RBC Distribution Width 11.8 % (11.5-14.5); Red Blood Cell (RBC) Count 4.55 mill/uL (4.20-5.40)
[2020-06-09 06:56] LABS: ALT (SGPT) 87 U/L (8-55); AST (SGOT) 43 U/L (5-34); Albumin 3.4 g/dL (3.5-5.0); Alkaline Phosphatase 73 U/L (40-110); Anion Gap 13 mmol/L (10-20); BUN (Urea Nitrogen) 13 mg/dL (7.0-18.7); Bilirubin, Total 0.3 mg/dL (0.2-1.2); Calc. Creatinine Clearance 116 mL/min (70-130); Calcium 9.1 mg/dL (7.8-10.44); Carbon Dioxide 26 mmol/L (22-29); Chloride 104 mmol/L (98-107); Estimated GFR-MDRD 80; Globulin 3.5 g/dL (2.4-3.5); Glucose 98 mg/dL (70-105); Potassium 4.1 mmol/L (3.5-5.1); Protein, Total 6.9 g/dL (6.0-8.3); Sodium 139 mmol/L (136-145)
[2020-06-09] MEDS: Ascorbic Acid 500 mg Chewable Tablet PO SCH (08:29)
[2020-06-09] MEDS: guaiFENesin ER 600 MG TAB PO SCH (08:30)
[2020-06-09] MEDS: Dexamethasone 4 mg/ml Vial SLOW IVP SCH (08:30)
[2020-06-09] MEDS: Multivit, Therapeutic 1 TAB PO SCH (08:30)
[2020-06-09] MEDS: Famotidine 20 MG TAB PO SCH (08:30)
[2020-06-09] MEDS: Enoxaparin Sodium 40 MG/0.4 ML SYRINGE SC SCH (08:30)
[2020-06-09] MEDS: Zinc Sulfate 220 MG CAP PO SCH (08:32)
[2020-06-09 11:59] VITALS: BP 106/70
[2020-06-09 14:46] VITALS: TEMP 98.5
--- NOTE | 2020-06-09 16:45 | DIS ---
DATE OF ADMISSION: 06/03/2020 DATE OF DISCHARGE: 06/09/2020 DISCHARGE DISPOSITION: Home. FOLLOWUP: Follow up with primary care physician at [facility] in 1 week. DISCHARGE MEDICATIONS: 1. Eliquis 2.5 mg b.i.d. for next two weeks. 2. Dexamethasone 6 mg daily for a total of 10 days. 3. Albuterol inhaler as needed. Home oxygen has been arranged. The patient was advised to monitor pulse oximetry and to seek medical attention if she develops hypoxemia. The patient was evaluated on the day of discharge, denies any new complaints. No shortness of breath or chest pain reported. BRIEF HOSPITAL COURSE: The patient is a 40-year-old female, who presented to the emergency room on June 03, 2020, with shortness of breath along with cough, fever, and loss of taste. She reported several of her family members tested positive for COVID-19. Her workup was consistent with COVID-19 pneumonia. The patient was evaluated by Infectious Disease, Dr. Harper. She was started on remdesivir along with dexamethasone. She also received convalescent plasma. She completed remdesivir yesterday. The inflammatory markers are gradually improving. Her O2 saturation at discharge is 95% on 2 L nasal cannula. Home oxygen will be arranged. The patient has been cleared by Infectious Disease for discharge. SIGNIFICANT LABORATORY DATA: 1. COVID-19 testing positive on June 04, 2020. 2. test negative. 3. Ferritin at discharge was 458, on admission was 853. 4. CBC showed WBC of 6.8 with lymphocytopenia. 5. D-dimer 0.47. 6. CRP at discharge is 1.08 from 11.30. 7. Repeat CBC and comprehensive metabolic profile are recommended as outpatient. Primary care physician advised to follow. FINAL DIAGNOSES: 1. Acute hypoxic respiratory failure secondary to COVID-19 pneumonia with sepsis present on admission. 2. Obesity with a BMI of 32. 3. Elevated inflammatory markers. 4. Chronic kidney disease, stage 2. 5. Slightly abnormal LFTs. A repeat lab as outpatient is recommended. Primary care physician advised to follow. 6. Generalized weakness. 7. Reactive thrombocytosis. The patient understands the above plan of care. Job ID: [id number]
== END 2020-06-09 15:31 | disposition home or self-care (01) | DRG 871 ==
LOC: ERS 08:14 → ERHOLD 10:38 → T4-A 14:33
PROVIDERS: ADMIT Internal Medicine; ATTEND Internal Medicine
PROC: 8E0ZXY6 Isolation (ICD-10-PCS; 2020-06-03)
PROC: XW033E5 Introduction of Remdesivir Anti-infective into Peripheral Vein, Percutaneous Approach, New Technology Group 5 (ICD-10-PCS; principal; 2020-06-04)
PROC: XW13325 Transfusion of Convalescent Plasma (Nonautologous) into Peripheral Vein, Percutaneous Approach, New Technology Group 5 (ICD-10-PCS; 2020-06-05)
DX: A41.89 Other specified sepsis (principal); U07.1 COVID-19; J96.01 Acute respiratory failure with hypoxia; J12.89 Other viral pneumonia; E66.9 Obesity, unspecified; N18.2 Chronic kidney disease, stage 2 (mild); D47.3 Essential (hemorrhagic) thrombocythemia; R94.5 Abnormal results of liver function studies; Z68.32 Body mass index [BMI] 32.0-32.9, adult; Z90.710 Acquired absence of both cervix and uterus; Z79.899 Other long term (current) drug therapy
CPT/HCPCS: 36415; 36430; 71045; 80048; 80053; 81001; 81025; 82565; 82728; 83605; 83615; 83735; 84484; 85014; 85018; 85025; 85049; 85379; 86140; 86850; 86900; 86901; 87040; 87635; 93005; 96365; 96367; 96375; J0456; J0696; J1100; J1650; J3490; J7050; P9017; U0003

== ENCOUNTER 2020-07-16 12:48 | Outpatient (CLI) | payer BC ==
--- NOTE | 2020-07-16 13:19 | MMO ---
Bilateral MAMMO Bilat Screen [facility]. CLINICAL HISTORY: Patient is 40 years old and is seen for screening. The patient has no family history of breast cancer. The patient has no personal history of cancer. VIEWS: The views performed were: bilateral craniocaudal with tomosynthesis and bilateral mediolateral oblique with tomosynthesis. FILMS COMPARED: The present examination has been compared to prior imaging studies performed at [facility] on 07/30/2018 and 08/01/2019. This study has been interpreted with the assistance of computer-aided detection. MAMMOGRAM FINDINGS: The breasts are heterogeneously dense, which could obscure a lesion on mammography. There are no suspicious masses, suspicious calcifications, or new areas of architectural distortion. IMPRESSION: THERE IS NO MAMMOGRAPHIC EVIDENCE OF MALIGNANCY. A ROUTINE FOLLOW-UP MAMMOGRAM IN 1 YEAR IS RECOMMENDED. THE RESULTS OF THIS EXAM WERE SENT TO THE PATIENT. ACR BI-RADS Category 1 - Negative MAMMOGRAPHY NOTE: 1. A negative mammogram report should not delay a biopsy if a dominant of clinically suspicious mass is present. 2. Approximately 10% to 15% of breast cancers are not detected by mammography. 3. Adenosis and dense breasts may obscure an underlying neoplasm. Reported by: KELSEY FOFANA MD Electonically Signed: [id number]
== END 2020-07-16 12:49 | disposition home or self-care (01) ==
LOC: BICMAMMO 12:48
PROVIDERS: ATTEND Physician Assistant
DX: Z12.31 Encounter for screening mammogram for malignant neoplasm of breast (principal)
CPT/HCPCS: 77063; 77067

== ENCOUNTER 2021-08-02 14:51 | Outpatient (CLI) | payer BC | END 2021-08-02 14:52 | disposition home or self-care (01) | LOC: BICMAMMO 14:51 | PROVIDERS: ATTEND Physician Assistant | DX: Z12.31 Encounter for screening mammogram for malignant neoplasm of breast (principal) | CPT/HCPCS: 77063; 77067 ==

== ENCOUNTER 2022-09-08 07:48 | Outpatient (CLI) | payer BC | END 2022-09-08 07:49 | disposition home or self-care (01) | LOC: BICMAMMO 07:48 | PROVIDERS: ATTEND Physician Assistant | DX: Z12.31 Encounter for screening mammogram for malignant neoplasm of breast (principal) | CPT/HCPCS: 77063; 77067 ==

== ENCOUNTER 2023-10-11 09:27 | Outpatient (CLI) | payer BC | END 2023-10-11 09:28 | disposition home or self-care (01) | LOC: BICMAMMO 09:27 | PROVIDERS: ATTEND Physician Assistant | DX: Z12.31 Encounter for screening mammogram for malignant neoplasm of breast (principal) | CPT/HCPCS: 77063; 77067 ==